=== PATIENT | female | born 1990 | race Caucasian/White ===

== ENCOUNTER 2016-09-10 19:47 | Emergency (ER) | payer BC, MEDICAID ==
--- NOTE | 2016-09-10 22:20 | UC ---
Diane Xiong Erika, scribed for Светлана Yuen DO on 09/10/16 at 2139 . Abdominal Pain Female HPI - HPI Summary HPI Summary: Patient is a 26-year-old female presenting to [facility] with a CC of abdominal pain. Pt reports that on 09/08/2016, she was seen by her OB-Consulting Services Project Manager and was treated for a yeast infection with fluconazole. Yesterday, pt woke up with a headache, disorientation, nasal discharge, sinus pain, nausea, vomiting (3x today), and diarrhea described as a loose stool 4x yesterday. Pt has continued to vomit, and states she has been unable to tolerate most PO intake, but has tolerated fluids today. She described the vomit as yellow mucus and foam. Pt states today , she had a formed stool. Today, pt notes umbilical and RLQ pain coming in waves , rated a 6 at worst. Pain is not aggravated by bumps in the road. She does also note chills, SOB (resolved), tinnitus, and myalgias. She denies urinary symptoms. 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 Denies Hx HTN, asthma. No known FHx cardiac disease, diabetes, HTN. Pt smokes. - History of Current Complaint Chief Complaint: UCAbdominalPain Stated Complaint: ABDOMINAL PAIN Time Seen by Provider: 09/10/16 21:25 Hx Obtained From: Patient Hx Last Menstrual Period: 2 WEEKS AGO Onset/Duration: Gradual Onset, Lasting Days, Still Present Timing: Intermittent Episodes Lasting: - seconds/minutes Severity Currently: Moderate Pain Intensity: 3 Pain Scale Used: 0-10 Numeric Location: Discrete At: RLQ, Other - umbilical Radiates: No Character: Aching, Sharp Aggravating Factor(s): Food Alleviating Factor(s): Nothing Associated Signs and Symptoms: Positive: Back Pain, Decreased Appetite, Nausea, Vomiting, Diarrhea. Negative: Diaphoresis, Fever, Cough, Chest Pain, Urinary Symptoms Allergies/Adverse Reactions: Allergies Allergy/AdvReac Type Severity Reaction Status Date / Time No Known Allergies Allergy Verified 09/10/16 20:44 Home Medications: Home Medications Bismuth Subsalicylate [Pepto Bismol] PRN 09/10/16 [History] Norethindrone Acet & Eth Estra [[place] 1.5/30 1.5-30 mg-Mcg] 1 tab PO DAILY 09/10 [History Confirmed 09/10/16] PMH/Surg Hx/FS Hx/Imm Hx Previously Healthy: Yes Cardiovascular History Of: Denies: Hypertension Respiratory History Of: Denies: Asthma Cancer History Of: Denies: Lung Cancer, Colorectal Cancer, Breast Cancer, Prostate Cancer, Cervical Cancer - Surgical History Surgical History: None - Family History Known Family History: Negative: Cardiac Disease, Hypertension, Diabetes - Social History Occupation: Employed Full-time Lives: With Family Alcohol Use: Occasionally Alcohol Amount: once a week Substance Use Type: Marijuana Smoking Status (MU): Current Every Day Smoker Type: Cigarettes Amount Used/How Often: 5-7 cig./day Have You Smoked in the Last Year: Yes Cessation Counseling: Patient Advised to Stop Review of Systems Constitutional: Chills, Other - disoriented Skin: Negative Eyes: Negative ENT: Nasal Discharge, Other - sinus pressure, tinnitus Respiratory: Shortness Of Breath Cardiovascular: Negative Gastrointestinal: Abdominal Pain, Vomiting, Diarrhea Genitourinary: Negative Motor: Negative Neurovascular: Negative Musculoskeletal: Myalgia Neurological: Headache Psychological: Negative All Other Systems Reviewed And Are Negative: Yes Physical Exam Triage Information Reviewed: Yes Appearance: Well-Appearing, No Pain Distress, Well-Nourished Vital Signs: Initial Vital Signs Temp 97.8 F 09/10/16 20:39 Pulse 72 09/10/16 20:39 Resp 16 09/10/16 20:39 BP 132/96 09/10/16 20:39 Pulse Ox 100 09/10/16 20:39 Vital Signs Reviewed: Yes Eyes: Positive: Conjunctiva Clear. Negative: Discharge ENT: Positive: Hearing grossly normal. Negative: Muffled/hoarse voice Neck: Positive: Supple, Nontender Respiratory: Positive: Lungs clear, Normal breath sounds, No respiratory distress, No accessory muscle use Cardiovascular: Positive: RRR, No Murmur Abdomen Description: Positive: Soft, Other: - Tenderness umbilical and RLQ. neg psoas, neg obturator. Negative: CVA Tenderness (R), CVA Tenderness (L), Distended, Guarding Bowel Sounds: Positive: Hyperactive Musculoskeletal Exam: Normal Neurological: Positive: Alert, Muscle Tone Normal Psychological Exam: Normal Psychological: Positive: Age Appropriate Behavior Skin Exam: Other - warm, dry, normal color Diagnostics - Laboratory Diagnostic Studies Completed/Ordered: UA: Negative , 1.035, pH 5, all else negative Abd Pain Female Course/Dx - Differential Dx/Diagnosis Differential Diagnosis: Appendicitis, Constipation, Irritable Bowel Syndrome, Ovarian Cyst, , Urinary Tract Infection Provider Diagnoses: abd pain unknow keyla - r/o appy - Physician Notification/Consults Discussed Patient Care With: SANTI Short ([facility] [place] [facility]) at 22:13 - accepts to the ED Discharge - Discharge Plan Condition: Stable Disposition: AGAINST MEDICAL ADVICE Discharge Disposition Comment: to the [facility] [place] [place] [facility] by private car Referrals: Johnathon Dixon MD [Primary Care Provider] - The documentation as recorded by the Diane og Erika accurately reflects the service I personally performed and the decisions made by , Светлана Yuen DO.
[2016-09-10 22:22] VITALS: BP 119/90
== END 2016-09-10 22:15 | disposition left against medical advice (07) ==
LOC: UCEAST 19:47
DX: R10.31 Right lower quadrant pain (principal); R11.2 Nausea with vomiting, unspecified; R19.7 Diarrhea, unspecified; M54.9 Dorsalgia, unspecified; Z32.02 Encounter for pregnancy test, result negative; F12.90 Cannabis use, unspecified, uncomplicated; F17.210 Nicotine dependence, cigarettes, uncomplicated; Z71.6 Tobacco abuse counseling
CPT/HCPCS: 81002; 81025; 99212; G0463

== ENCOUNTER 2016-09-10 22:44 | Emergency (ER) | payer BC ==
[2016-09-10] MEDS ORDERED: NS 0.9% 1000 ML* 1,000 ML IV ONE (23:10)
[2016-09-10] MEDS ORDERED: Ondansetron INJ* 2 MG/ML VIAL IV ONE (23:10)
[2016-09-10] MEDS ORDERED: Morphine INJ* 2 MG/ML 1 ML CARPUJECT IV ONE (23:10)
--- NOTE | 2016-09-10 23:42 | ED ---
Evelyn Xiong SooYoung, scribed for Barrington Da Silva MD on 09/10/16 at 2321 . Abdominal Pain/Female - HPI Summary HPI Summary: A 26 y/o F presents to ED referred [place] [facility] [place] with c/o epigastric abd pain onset [id number]. Pt was lying in bed at onset, and the pain gradually worsened. Radiating mildly to RUQ. Associated sx: nausea, diarrhea (3-4x yesterday). Her temp this AM was 99.4. She notes having similar sx 5 years ago, but it was not appendicitis. LNMP: two weeks ago. - History of Current Complaint Chief Complaint: EDAbdPain Stated Complaint: ABD PAIN/SENT FROM [facility] Time Seen by Provider: 09/10/16 23:05 Hx Obtained From: Patient Hx Last Menstrual Period: 2 WEEKS AGO Onset/Duration: Gradual Onset, Lasting Hours, Still Present Timing: Constant Severity Currently: Moderate Pain Intensity: 4 Pain Scale Used: 0-10 Numeric Location: Epigastric Radiates: Yes Radiates to: Other - RUQ Associated Signs and Symptoms: Positive: Nausea, Diarrhea Allergies/Adverse Reactions: Allergies Allergy/AdvReac Type Severity Reaction Status Date / Time Morphine Allergy Intermediate Hives Verified 09/10/16 23:55 PMH/Surg Hx/FS Hx/Imm Hx Previously Healthy: Yes Endocrine/Hematology History: Denies: Hx Diabetes, Hx Thyroid Disease Cardiovascular History: Denies: Hx Congestive Heart Failure, Hx Deep Vein Thrombosis, Hx Hypertension , Hx Myocardial Infarction, Hx Pacemaker/ICD Respiratory History: Denies: Hx Asthma, Hx Chronic Obstructive Pulmonary Disease (COPD), Hx Lung Cancer, Hx Pneumonia, Hx Pulmonary Embolism GI History: Denies: Hx Gall Bladder Disease, Hx Gastrointestinal Bleed, Hx Ulcer, Hx Urosepsis History: Denies: Hx Kidney Stones, Hx Renal Disease Neurological History: Denies: Hx Dementia, Hx Migraine, Hx Seizures, Hx Transient Ischemic Attacks (TIA) Psychiatric History: Denies: Hx Anxiety, Hx Depression, Hx Schizophrenia, Hx Bipolar Disorder Infectious Disease History: No Infectious Disease History: Denies: Hx Clostridium Difficile, Hx Hepatitis, Hx Human Immunodeficiency Virus (HIV), Hx of Known/Suspected MRSA, Hx Shingles, Hx Tuberculosis, Hx Known/ Suspected VRE, Hx Known/Suspected VRSA, History Other Infectious Disease, Traveled Outside the [place] in Last 30 Days - Family History Known Family History: Positive: None Negative: Cardiac Disease, Hypertension, Diabetes - Social History Occupation: Employed Full-time Lives: Alone Alcohol Use: Occasionally Alcohol Amount: once a week Hx Substance Use: Yes Substance Use Type: Reports: Marijuana Hx Tobacco Use: Yes Smoking Status (MU): Current Every Day Smoker Type: Cigarettes Amount Used/How Often: 5-7 cig./day Have You Smoked in the Last Year: Yes Review of Systems Positive: Abdominal Pain, Diarrhea, Nausea All Other Systems Reviewed And Are Negative: Yes Physical Exam Triage Information Reviewed: Yes Vital Signs On Initial Exam: Initial Vitals Temp Pulse Resp BP Pulse Ox 97.7 F 84 16 132/73 100 09/10/16 22:50 09/10/16 22:50 09/10/16 22:50 09/10/16 22:50 09/10/16 22:50 Vital Signs Reviewed: Yes Appearance: Positive: Well-Appearing, Pain Distress - mild discomfort Skin: Positive: Warm Eyes: Positive: EOMI, PUSHPA ENT: Positive: Hearing grossly normal Neck: Positive: Supple Respiratory/Lung Sounds: Positive: Clear to Auscultation, Breath Sounds Present Cardiovascular: Positive: RRR Abdomen Description: Positive: No Organomegaly, Soft, Other: - mild rlq tenderness. Negative: Guarding Bowel Sounds: Positive: Present Musculoskeletal: Positive: Strength/ROM Intact Neurological: Positive: Sensory/Motor Intact Psychiatric: Positive: Affect/Mood Appropriate Diagnostics - Vital Signs Vital Signs Temp Pulse Resp BP Pulse Ox 09/10/16 22:50 97.7 F 84 16 132/73 100 - Laboratory Result Diagrams: 09/10/16 23:15 09/10/16 23:15 Lab Statement: Any lab studies that have been ordered have been reviewed, and results considered in the medical decision making process. - CT A/P with CT CT Interpretation: No Acute Changes - see report CT Interpretation Completed By: Radiologist Re-Evaluation - Re-Evaluation First Eval Change: Improved Abdominal Pain Fem Course/Dx - Course Course Of Treatment: MDM: A 26 y/o F with epigastric abd pain comes in from [facility]. Gradually worsening pain onset of sx approx 1330 today. Associated sx: nausea, diarrhea. Radiating RUQ. Pt given Benadryl, Zofran, Morphine. A/P CT with contrast ordered. Creatine Reactive Protein is high 9.96. UA was negative. Abd/Pel Ct with contrast was unremarkable. Pt will be d/c home with naproxen. - Diagnoses Provider Diagnoses: Abdominal pain Discharge - Discharge Plan Condition: Stable Disposition: HOME Prescriptions: Naproxen TAB* [Naprosyn TAB*] 500 mg PO BID #20 tab Patient Education Materials: Naproxen (By mouth), Acute Abdominal Pain (ED) Referrals: No Primary Care Phys,NOPCP [Primary Care Provider] - [facility] [place] [facility] [place] [facility] [Outside] The documentation as recorded by the Evelyn og SooYoung accurately reflects the service I personally performed and the decisions made by me, Barrington Da Silva MD.
[2016-09-10 23:52] LABS: Hematocrit 41 % (35-47); Hemoglobin 13.3 g/dl (12.0-16.0); Mean Corpuscular HGB Conc 33 g/dl (31-36); Mean Corpuscular Hemoglobin 29 pg (27-31); Mean Corpuscular Volume 88 fL (80-97); Mean Platelet Volume 9 um3 (7.4-10.4); Red Blood Count 4.59 10^6/ul (4.0-5.4); Red Cell Distribution Width 13 % (10.5-15); White Blood Count 12.7 10^3/ul (3.5-10.8)
[2016-09-10] MEDS ORDERED: diPHENhydraMINE IV* 50 MG/ML 1 ml VIAL (BENADRYL) IV ONE (23:55)
[2016-09-10] MEDS ORDERED: diPHENhydraMINE IV* 50 MG/ML 1 ml VIAL (BENADRYL) ONE (23:57)
[2016-09-11 00:08] LABS: ALT 17 U/L (7-52); Albumin 4.6 g/dL (3.2-5.2); Alkaline Phosphatase 57 U/L (34-104); BUN/Creatinine Ratio 11.6 (8-20); Blood Urea Nitrogen 10 mg/dL (6-24); C Reactive Protein 9.96 mg/L (< 5.00); CO2 Carbon Dioxide 26 mmol/L (22-32); Calcium 9.5 mg/dL (8.6-10.3); Chloride 100 mmol/L (101-111); EGFR African American 104.3 (>60); EGFR Non-African American 81.1 (>60); Globulin 3.7 g/dL (2-4); Glucose 87 mg/dL (70-100); Sodium 132 mmol/L (133-145); Total Protein 8.3 g/dL (6.4-8.9)
[2016-09-11] MEDS ORDERED: Iohexol 300* (CONTRAST) 10 ML SDV IV ONE (00:27)
[2016-09-11 00:42] LABS: AST 28 U/L (13-39); Anion Gap 6 mmol/L (2-11); Potassium 4.3 mmol/L (3.5-5.0)
[2016-09-11] MEDS ORDERED: Ketorolac INJ* 30 MG/ML 1 ML VIAL IV PUSH ONE (01:00)
[2016-09-11 01:09] LABS: Urine Bilirubin Negative (Negative); Urine Glucose Negative (Negative); Urine Nitrite Negative (Negative)
[2016-09-11 02:16] VITALS: BP 122/64
--- NOTE | 2016-09-11 08:29 | RAD ---
INDICATION: Intermittent epigastric pain with nausea, vomiting, diarrhea. COMPARISON: June 21, 2011 CT. TECHNIQUE: Multidetector CT images were obtained from the lung bases to the ischial tuberosities with 97 mL Omnipaque 300 IV and oral contrast. Multiplanar reformation. REPORT: Unremarkable visualized inferior thorax. The liver, gallbladder, pancreas, and spleen are unremarkable. Negative for CT abnormality of the upper GI, small bowel, retrocecal appendix, or colon. Physiologic trace free fluid in the dependent pelvis. Negative for free air or significant hernias. Normal adrenal glands. Unremarkable kidneys with symmetric nephrograms and pyelograms. No abnormality evident along the course of the nondilated ureters. Unremarkable urinary bladder as well as the uterus and adnexal regions. Negative for lymphadenopathy. Unremarkable dominant retroperitoneal vasculature. Negative for suspicious osseous lesions. IMPRESSION: Normal appendix documented. No inflammatory or obstructive process of the bowel evident. Negative for obstructive uropathy. No acute abdominal pelvic pathologic process evident.
== END 2016-09-11 02:15 | disposition home or self-care (01) ==
LOC: ED 22:44
DX: R10.13 Epigastric pain (principal)
CPT/HCPCS: 36415; 74177; 80053; 81003; 83605; 83735; 84702; 85025; 86140; 96360; 96374; 96375; 99284; J1200; J1885; J2270; J2405; Q9967

== ENCOUNTER 2018-09-26 08:59 | Emergency (ER) | payer BC, OTHER ==
[2018-09-26 09:18] VITALS: BP 139/72
--- NOTE | 2018-09-26 10:05 | UC ---
Respiratory Complaint HPI - HPI Summary HPI Summary: 4 DAYS OF COUGH, CONGESTION, PND, ST. YESTERDAY HAD SOME CHEST PRESSURE, PALPITATIONS BUT NONE NOW. HAS OCCASIONAL MID BACK PAIN WITH COUGH AND MVMT. SLIGHT TINGLING LEFT WRIST YESTERDAY WHILE TYPING. QUIT SMOKING 3 WEEKS AGO. - History of Current Complaint Chief Complaint: UCRespiratory Stated Complaint: SINUS ISSUE COUGH BACK PAIN Time Seen by Provider: 09/26/18 09:43 Hx Obtained From: Patient Hx Last Menstrual Period: 09/24/18 Onset/Duration: Gradual Onset, Lasting Days, Still Present Timing: Constant Severity Initially: Moderate Severity Currently: Moderate Pain Intensity: 6 Pain Scale Used: 0-10 Numeric Character: Cough: Nonproductive Aggravating Factors: Nothing Alleviating Factors: Nothing Associated Signs And Symptoms: Positive: URI, Nasal Congestion. Negative: Dyspnea, Fever, Chills, Wheezing - Allergies/Home Medications Allergies/Adverse Reactions: Allergies Allergy/AdvReac Type Severity Reaction Status Date / Time morphine Allergy Hives Verified 09/26/18 09:18 PMH/Surg Hx/FS Hx/Imm Hx Previously Healthy: Yes - Surgical History Surgical History: None - Family History Known Family History: Positive: None Negative: Cardiac Disease, Hypertension, Diabetes - Social History Alcohol Use: Rare Alcohol Amount: 2 months ago Substance Use Type: Marijuana Substance Use Comment - Amount & Last Used: rarely Smoking Status (MU): Former Smoker Type: Cigarettes Amount Used/How Often: 5-7 cig./day Have You Smoked in the Last Year: Yes When Did the Patient Quit Smoking/Using Tobacco: 08/27/18 Household Exposure Type: Cigars - Immunization History Most Recent Influenza Vaccination: 04/2017 Review of Systems All Other Systems Reviewed And Are Negative: Yes Constitutional: Positive: Negative ENT: Positive: Sore Throat, Nasal Discharge Respiratory: Positive: Cough Cardiovascular: Positive: Palpitations, Chest Pain Physical Exam Triage Information Reviewed: Yes Appearance: Well-Appearing, No Pain Distress, Well-Nourished Vital Signs: Initial Vital Signs Temp 98.9 F 09/26/18 09:12 Pulse 81 09/26/18 09:12 Resp 16 09/26/18 09:12 BP 139/72 09/26/18 09:12 Pulse Ox 99 09/26/18 09:12 Vital Signs Reviewed: Yes Eyes: Positive: Conjunctiva Clear ENT: Positive: Hearing grossly normal, Pharynx normal, TMs normal Neck: Positive: Supple, Nontender, No Lymphadenopathy Respiratory Exam: Normal Cardiovascular Exam: Normal Abdomen Description: Positive: Soft Musculoskeletal: Positive: No Edema Neurological: Positive: Alert, Other: - NEG TINELS Psychological: Positive: Age Appropriate Behavior Skin: Negative: Rashes UC Diagnostic Evaluation - Laboratory O2 Sat by Pulse Oximetry: 99 - Radiology Radiology Interpretation Completed By: Radiologist Summary of Radiographic Findings: CXR UNREMARKABLE Respiratory Course/Dx - Course Course Of Treatment: PATIENT'S RESPIRATORY SYMPTOMS ARE CONSISTENT WITH AN ACUTE URI. SHE IS ALSO C/O CHEST PAIN, PALPITATIONS AND BACK PAIN. DISCUSSED WITH PATIENT THAT WE CANNOT ADEQUATELY EVALUATE HER HERE FOR ANY CARDIAC ETIOLOGY OF HER SYMPTOMS. SHE DECLINES TRANSFER TO THE ED TODAY. IS NOT CONCERNED ABOUT CARDIAC ETIOLOGY. CHEST X-RAY UNREMARKABLE. WILL SEND HOME WITH CONSERVATIVE MANAGEMENT FOR VIRAL URI AND HAVE ADVISED HER TO GO TO THE ED WITHOUT FAIL IF HER OTHER SYMPTOMS WORSEN. - Differential Dx/Diagnosis Provider Diagnosis: Acute URI, Pleurisy Discharge - Sign-Out/Discharge Documenting (check all that apply): Patient Departure All imaging exams completed and their final reports reviewed: Yes - Discharge Plan Condition: Stable Disposition: HOME Prescriptions: predniSONE TAB* [Deltasone 20 MG TAB*] 40 mg PO DAILY #10 tab Patient Education Materials: Pleurisy (ED), Upper Respiratory Infection (ED) Referrals: Bandar Echavarria MD [Medical Doctor] - If Needed Additional Instructions: CHEST XRAY UNREMARKABLE. YOUR SYMPTOMS ARE LIKELY VIRALLY MEDIATED AND SHOULD RESOLVE ON THEIR OWN WITH TIME. NO INDICATION FOR ANTIBIOTICS AT PRESENT. REST, HYDRATE, OTC MEDS NEEDED. WILL TREAT WITH PREDNISONE TO HELP WITH AIRWAY INFLAMMATION. SEEK FOLLOW-UP IF YOU ARE NOT IMPROVING OVER THE NEXT 1-2 WEEKS. DISCUSSED WE ARE UNABLE TO ADEQUATELY EVALUATE YOU FOR CHEST PAIN FROM A CARDIAC POINT OF VIEW. YOUR SYMPTOMS ARE MORE IN LINE WITH RESPIRATORY CAUSES AND YOU ARE LOW RISK FOR CARDIAC CONDITION. YOU HAVE DECLINED TRANSFER TO THE ER TODAY. GO TO THE ER WITHOUT FAIL IF YOU DEVELOP WORSENING CHEST PAIN, SHORTNESS OF BREATH, NAUSEA, SWEATS OR ANY OTHER CONCERNING SYMPTOMS. - Billing Disposition and Condition Condition: STABLE Disposition: Home
== END 2018-09-26 11:06 | disposition home or self-care (01) ==
LOC: UCEAST 08:59
DX: J06.9 Acute upper respiratory infection, unspecified (principal); R09.1 Pleurisy; Z87.891 Personal history of nicotine dependence; Z88.5 Allergy status to narcotic agent
CPT/HCPCS: 71046; 99212; G0463